=== PATIENT | female | born 1990 ===

== ENCOUNTER 2023-05-16 09:55 | Emergency (ER) | payer SELFPAY ==
[~2023-05-16] VITALS: Ht 162.6 cm; Wt 90.9 kg
[2023-05-16 10:01] VITALS: BP 115/82; PULSE 72; RESP 15; TEMP 98; O2SAT 100
[2023-05-16] MEDS ORDERED: PENI250T2 PO (10:26)
[2023-05-16] MEDS ORDERED: NAPR-56 PO (10:26)
== END 2023-05-16 10:38 | disposition home or self-care (01) ==
LOC: ER 09:56
DX: K04.7 Periapical abscess without sinus (principal); Z79.899 Other long term (current) drug therapy
CPT/HCPCS: 99283